=== PATIENT | female | born 1980 | race African-American/Black ===

== ENCOUNTER 2017-12-03 19:49 | Emergency (ER) | payer OTHER ==
[~2017-12-03] VITALS: Ht 162.6 cm; Wt 115.0 kg
[2017-12-03 19:56] VITALS: BP 164/85; PULSE 129; RESP 20; TEMP 98.4; O2SAT 94
--- NOTE | 2017-12-03 21:11 | RADRPT ---
EXAM DATE/TIME: 12/03/2017 20:13 [place] COMPARISON: No previous studies available for comparison. INDICATIONS : Shortness of breath, chest discomfort starting today MEDICAL HISTORY : None. SURGICAL HISTORY : None. ENCOUNTER: Initial ACUITY: 1 day PAIN SCORE: 0/10 LOCATION: Bilateral chest FINDINGS: PA and lateral views of the chest demonstrate the lungs to be symmetrically aerated without evidence of mass, infiltrate or effusion. The cardiomediastinal contours are unremarkable. Osseous structure s are intact. Export are seen over the lower right chest and left shoulder region. CONCLUSION: No acute disease. Shar Sevilla MD on December 03, 2017 at 21:08 Board Certified Radiologist. This report was verified electronically.
[2017-12-03] MEDS ORDERED: SODIUM CHLORIDE 0.9% FLUSH 10 ML FLUSH IVF PRN (22:00)
[2017-12-03] MEDS ORDERED: SODIUM CHLOR 0.9% 1000 ML INJ 1,000 ML IV ONE (22:00)
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
[2017-12-03 22:52] LABS: AUTOMATED NEUTROPHIL # 6.4 TH/MM3 (1.8-7.7); BASOPHIL % 0.4 % (0.0-2.0); EOSINOPHIL % 0.2 % (0.0-4.0); HEMATOCRIT 32.3 % (35.0-46.0); LYMPH % 18.6 % (9.0-44.0); LYMPHOCYTE # 1.6 TH/MM3 (1.0-4.8); MEAN CELL VOLUME 97.5 FL (80.0-100.0); MEAN CORPUSCULAR HEMOGLOBIN 33.4 PG (27.0-34.0); MEAN CORPUSCULAR HGB CONC 34.2 % (32.0-36.0); MEAN PLATELET VOLUME 7.7 FL (7.0-11.0); MONO % 4.2 % (0.0-8.0); MONOCYTE # 0.3 TH/MM3 (0-0.9); NEUT % 76.6 % (16.0-70.0); PLATELET COUNT 284 TH/MM3 (150-450); RED BLOOD COUNT 3.31 MIL/MM3 (4.00-5.30); WHITE BLOOD COUNT 8.3 TH/MM3 (4.0-11.0)
[2017-12-03 23:05] LABS: PROTHROMBIN TIME - PATIENT 10.2 SEC (9.8-11.6)
[2017-12-03 23:06] LABS: D-DIMER 0.37 MG/L FEU (0.00-0.50)
[2017-12-03 23:07] LABS: BICARBONATE 26.2 MEQ/L (21.0-32.0); BLOOD UREA NITROGEN 14 MG/DL (7-18); CALCIUM 9.2 MG/DL (8.5-10.1); CHLORIDE 106 MEQ/L (98-107); CREATININE 0.94 MG/DL (0.50-1.00); GLOMERULAR FILTRATION RATE 80 ML/MIN (>89); GLUCOSE,RANDOM 153 MG/DL (74-106); MAGNESIUM 1.7 MG/DL (1.5-2.5); SODIUM (NA) 141 MEQ/L (136-145)
[2017-12-03 23:16] LABS: TROPONIN I LESS THAN 0.02 NG/ML (0.02-0.05)
[2017-12-04 00:13] VITALS: BP 138/74; PULSE 85; RESP 16; O2SAT 98
--- NOTE | 2017-12-04 00:13 | PD ---
Physical Exam Narrative Patient was seen by my respiratory therapy assistant and signed out to me. Data Data Last Documented VS Vital Signs Date Time Temp Pulse Resp B/P (MAP) Pulse Ox O2 Delivery O2 Flow Rate FiO2 12/03/17 19:56 98.4 129 20 164/85 (111) 94 Orders Orders Electrocardiogram (12/03/17 20:00) Complete Blood Count With Diff (12/03/17 20:00) Iv Access Insert/Monitor (12/03/17:00) Ecg Monitoring (12/03/17:00) Oxygen Administration (12/03/17:00) Oximetry (12/03/17:00) Chest, Pa & Lat (12/03/17:00) D-Dimer (12/03/17:00) Magnesium (Mg) (12/03/17:00) Prothrombin Time / Inr (Pt) (12/03/17:00) Act Partial Throm Time (Ptt) (12/03/17:00) Bilateral Bp Monitoring (12/03/17:00) Sodium Chloride 0.9% Flush (Ns Flush) (12/03/17 22:00) Thyroid Stimulating Hormone (12/03/17:00) Sodium Chlor 0.9% 1000 Ml Inj (Ns 1000 M (12/03/17 22:00) Ed Urine Pregnancytest Poc (12/03/17 22:00) Basic Metabolic Panel (Bmp) (12/03/17 22:31) Ckmb (Isoenzyme) Profile (12/03/17 22:31) Troponin I (12/03/17 22:31) CKMB (12/03/17 22:31) CKMB% (12/03/17 22:31) Labs Laboratory Tests Test 12/03/17 22:31 12/03/17 22:33 Prothrombin Time 10.2 SEC Prothromb Time International Ratio 1.0 RATIO Activated Partial Thromboplast Time 23.0 SEC D-Dimer Quantitative (PE/DVT) 0.37 MG/L FEU Blood Urea Nitrogen 14 MG/DL Creatinine 0.94 MG/DL Random Glucose 153 MG/DL Calcium Level 9.2 MG/DL Magnesium Level 1.7 MG/DL Sodium Level 141 MEQ/L Potassium Level 3.7 MEQ/L Chloride Level 106 MEQ/L Carbon Dioxide Level 26.2 MEQ/L Anion Gap 9 MEQ/L Estimat Glomerular Filtration Rate 80 ML/MIN Total Creatine Kinase 439 U/L Creatine Kinase MB 2.7 NG/ML Creatine Kinase MB % 0.6 % Troponin I LESS THAN 0.02 NG/ML Thyroid Stimulating Hormone 3rd Gen 0.882 uIU/ML White Blood Count 8.3 TH/MM3 Red Blood Count 3.31 MIL/MM3 Hemoglobin 11.0 GM/DL Hematocrit 32.3 % Mean Corpuscular Volume 97.5 FL Mean Corpuscular Hemoglobin 33.4 PG Mean Corpuscular Hemoglobin Concent 34.2 % Red Cell Distribution Width 13.0 % Platelet Count 284 TH/MM3 Mean Platelet Volume 7.7 FL Neutrophils (%) (Auto) 76.6 % Lymphocytes (%) (Auto) 18.6 % Monocytes (%) (Auto) 4.2 % Eosinophils (%) (Auto) 0.2 % Basophils (%) (Auto) 0.4 % Neutrophils # (Auto) 6.4 TH/MM3 Lymphocytes # (Auto) 1.6 TH/MM3 Monocytes # (Auto) 0.3 TH/MM3 Eosinophils # (Auto) 0.0 TH/MM3 Basophils # (Auto) 0.0 TH/MM3 CBC Comment DIFF FINAL Differential Comment [facility] Medical Record Reviewed: Yes Supervised Visit with BEBA: Yes Interpretation(s) EKG shows sinus tachycardia rate 124. Nonspecific ST-T wave change. Last Impressions Chest X-Ray 12/03/171999 Signed Impressions: Service Date/Time: Sunday, December 03, 2017 20:13 - CONCLUSION: No acute disease. Shar Seivlla MD CBC WBC 8.3. Hemoglobin 11.0 hematocrit 32.3. 76 neutrophil. Cardiac enzymes are normal. Total CK 439 with normal MB fraction. D-dimer 0.37. Diagnosis Primary Impression: Atypical chest pain Patient Instructions: General Instructions Additional Instruction: Tylenol ibuprofen as needed for pain. Follow-up with personal physician. Return if increasing chest pain shortness of breath. Disposition: DISCHARGE HOME Condition: Stable Junior Rees MD Dec 04, 2017 00:13
--- NOTE | 2017-12-04 16:42 | EKG ---
Date Performed: 12/03/2017 Time Performed: 20:06:48 PTAGE: 37 years EKG: SINUS TACHYCARDIA WITH SHORT [place] INTERVAL MINIMAL VOLTAGE CRITERIA FOR LVH, CONSIDER NORMAL VARIANT NONSPECIFIC T-WAVE ABNORMALITY ABNORMAL RHYTHM ECG NO PREVIOUS TRACING DOCTOR: Maico Zimmerman Interpretating Date/Time 12/04/2017 16:44:56
== END 2017-12-04 00:20 | disposition home or self-care (01) ==
LOC: NEPC 19:49
DX: R07.89 Other chest pain (principal); R00.0 Tachycardia, unspecified
CPT/HCPCS: 71046; 80048; 82550; 82552; 83735; 84443; 84484; 84703; 85025; 85379; 85610; 85730; 93005; 99285; J7030